=== PATIENT | female | born 1965 ===

== ENCOUNTER 2018-04-08 06:55 | Day surgery (SDC) | payer OTHER ==
[~2018-04-08 06:55] MED LIST: JARDIANCE10 MG PO; LOSARTAN POTASS50 MG PO; METFORMIN HCL500 MG PO; ZOCOR20 MG PO
[2018-04-08] MEDS ORDERED: COLACE100 MG PO (09:46)
[2018-04-08] MEDS ORDERED: PERCOCET 5-3251 EACH PO (09:46)
== END 2018-04-08 14:00 | disposition home or self-care (01) ==
LOC: CIR.AMB 06:55
DX: A63.0 Anogenital (venereal) warts (principal)